=== PATIENT | female | born 1980 | race Caucasian/White ===

== ENCOUNTER 2019-12-18 00:25 | Emergency (ER) | payer BC ==
[2019-12-18 00:30] VITALS: BP 108/73; PULSE 75; TEMP 98.2; BMI 18.4
--- NOTE | 2019-12-18 01:41 | PDOC ---
History of Present Illness - General Chief Complaint: Injury Stated Complaint: RIGHT ANKLE PAIN, FALL DOWN STAIRS Time Seen by Provider: 12/18/19 00:27 - History of Present Illness Initial Comments: This 39-year-old woman with a history of right-sided breast cancer, currently undergoing chemotherapy prior to surgery, presents with right ankle injury. Few hours prior to presentation, the patient missed a step while descending stairs and turned her right ankle. Other than a scrape on her right forearm, no other injury sustained. Right ankle is swollen, especially lateral aspect and she has pain on weightbearing. No previous history of right lower extremity injury. Patient currently takes only acetaminophen as needed for pain No known allergies Non-smoker; no daily alcohol or recreational drug use Past History - Medical History Allergies/Adverse Reactions: Allergies Allergy/AdvReac Type Severity Reaction Status Date / Time No Known Allergies Allergy Unverified 02/02/13 16:58 Home Medications: Ambulatory Orders Norethindrone-E.estradiol-Iron [Lo Loestrin Fe 1-10 Tablet] 1 each PO ASDIR tablet 02/02/13 - Psycho-Social/Smoking History Smoking History: Never smoked Have you smoked in the past 12 months: No Information on smoking cessation initiated: No - Substance Abuse Hx (Audit-C & DAST Scrn) How often the patient has a drink containing alcohol: Never Score: In Men: 4 or > Positive; In Women: 3 or > Positive: 0 Screen Result (Pos requires Nsg. Audit-10AR): Negative In the last yr the pt used illegal drug/Rx for NonMed reason: No Score: Yes response is considered Positive: 0 Screen Result (Positive result requires Nsg. DAST-10): Negative Review of Systems - Review of Systems Comments:: 12 point review of systems is negative except for what is noted in the history of present illness *Physical Exam - Vital Signs Last Vital Signs Temp Pulse Resp BP Pulse Ox 98.2 F 75 20 108/73 99 12/18/19 00:12/18/19 00:12/18/19 00:12/18/19 00:12/18/19 00:27 - Physical Exam GENERAL: Adult female, alert and oriented x3, no acute distress HEAD: Normal with no signs of trauma. EYES: PERRLA, EOMI, sclera anicteric, conjunctiva clear. EXTREMITIES: Right lower extremity-moderate edema/moderate tenderness/faint ecchymosis/no deformity lateral malleolus of ankle No ligamentous instability noted No foot edema/tenderness/deformity; distal neurovascular functioning intact Remainder the extremity exam is normal NEUROLOGICAL: Cranial nerves II through XII grossly intact. Normal speech. No focal neurological deficits. SKIN: Warm, Dry, normal turgor, no rashes or lesions noted. ED Treatment Course - RADIOLOGY Radiology Studies Ordered: Category Date Time Status ANKLE & FOOT-RIGHT* [RAD] Stat Radiology 12/18/19 00:30 Taken ED Progress Note - Progress Note Progress Note: As noted above, this 39-year-old woman presents with a history of right ankle injury this evening: She turned her ankle (inverted) when she missed a step while climbing down stairs at her home. Exam as noted above. Right ankle/foot x-rays performed. Preliminary interpretation by augustft tissue swelling, especially lateral aspect of the ankle; no evidence of fracture or dislocation. Clinical presentation most consistent with right ankle sprain. Results discussed with the patient. Removable ankle stirrup splint applied to the right lower extremity. Crutches were fitted for the patient and crutch walking instruction given. Patient does not have an orthopedist; referral information for the orthopedic group on-call (Jae/Antonino) provided. Patient received Tylenol 650 mg now for analgesia. Patient will elevate and ice the right ankle for the next 1 to 2 days with crutches for ambulation and use removable splint for 7 to 10 days. If she has persistent pain or swelling, she should follow-up with orthopedic group Discharge - Discharge Information Problems reviewed: Yes Clinical Impression/Diagnosis: Right ankle sprain Qualifiers: Encounter type: initial encounter Involved ligament of ankle: calcaneofibular ligament Qualified Code(s): S93.411A - Sprain of calcaneofibular ligament of right ankle, initial encounter Condition: Stable Disposition: HOME - Follow up/Referral Referrals: David Rowe MD [Staff Physician] - - Patient Discharge Instructions Patient Printed Discharge Instructions: Ankle Sprain Additional Instructions: Ice/elevation to right ankle area as much as possible over the next 2 days Ankle stirrup splint during the day for the next 7 to 10 days Use crutches for ambulation for the next 2 to 3 days Tylenol as needed for pain Follow-up with orthopedics (Drs. Rowe/Antoinno) if you have persistent pain/swelling for more than 5 days - Post Discharge Activity
[2019-12-18] MEDS ORDERED: ACETAMINOPHEN 325 MG TABLET (FP) PO ONE (01:46)
[2019-12-18] MEDS ORDERED: ACETAMINOPHEN 325 MG TABLET (FP) ONE (01:46)
== END 2019-12-18 01:55 | disposition home or self-care (01) ==
LOC: FER 00:25
DX: S93.411A Sprain of calcaneofibular ligament of right ankle, initial encounter (principal)
CPT/HCPCS: 73610-TC-RT-FY; 73630-TC-RT-FY; 99283-25

== ENCOUNTER 2020-03-27 10:00 | Inpatient (IN) | payer BC ==
[2020-03-25 11:09] VITALS: BMI 19.8
--- NOTE | 2020-03-26 09:48 | HP ---
Admitting History and Physical - Primary Care Physician PCP: Jamie White - Admission Chief Complaint: Bilateral breast cancer History of Present Illness: 40 year old nulliparous premenapausal female of [place] and [place] descent. who noted swelling in upper ineer aspect of right breast and underwent mammogram and US 08/2019 which showed extensive calcifications upper inner aspect right breast and small central area. Diagnostic mammogram showed 6.6 cm calcification extension. US breast showed three separate areas right 1:00,2:00 and 3:00 spanning 4.7 cm as well as a suspicious node right axilla. Right US core bxs showed right 1:00 IDC coil clip, right 2:00 IDC and saviscout was placed in that area. Right axillary lymph node showed metastatic dz and saviscout was placed there . ER +WI+ HER2 equivocal/ neg by fish. Breast MRI showed 09/2019 farly extensive right upper inner breast cancer 4.2x2.1x2.8cm with enhancement towards right nipple. 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 Ambry panel showed VUS BLM. Oncotype score was a 27. She underwent neoadjuvant chemotherapy with significant reduction in enhancement in right br east suspicious residual enhancement 9mm node and thick cortex. Exam showed complete clinical response right breast to neoadjuvant chmeotherapy. On recent mammogram she still has calcifications in right upper inner breast and they are diffuse. There is some sparing under the nipple . History Source: Patient Limitations to Obtaining History: No Limitations - Past Medical History ...LMP Comment: 10/2019 ...: No Psych: Yes: Depression - Advance Directives Advance Directives: Yes: Health Care Proxy - Smoking History Smoking history: Never smoked Have you smoked in the past 12 months: No Home Medications - Allergies Allergies/Adverse Reactions: Allergies Allergy/AdvReac Type Severity Reaction Status Date / Time seasonal Allergy Uncoded 03/25/20 10:54 - Home Medications Home Medications: Ambulatory Orders Ascorbate Calcium [Vitamin C] 1,000 mg PO DAILY 03/25/20 Cholecalciferol (Vitamin D3) [Vitamin D3] 2,000 unit PO DAILY 03/25/20 Cyanocobalamin [Vitamin B12 -] 1,000 mcg PO DAILY 03/25/20 Sertraline HCl [Zoloft -] 75 mg PO DAILY 03/25/20 Family Medical History Family History: Denies Physical Examination Constitutional: Yes: Well Nourished Breast(s): Yes: Other (A cup sized breasts On palpation her previous thickend in upper inner aspect right breast dissapated no suspicious masses or adenopathy bilaterally S/P neoadjuvant chemotherapy) Problem List - Problems (1) Bilateral breast cancer Problems reviewed: Yes Code(s): C50.911 - MALIGNANT NEOPLASM OF UNSP SITE OF RIGHT FEMALE BREAST; C50.912 - MALIGNANT NEOPLASM OF UNSPECIFIED SITE OF LEFT FEMALE BREAST Qualifiers: Breast location: upper inner quadrant of breast Estrogen receptor status: positive Patient sex: female Qualified Code(s): C50.211 - Malignant neoplasm of upper-inner quadrant of right female breast; C50.212 - Malignant neoplasm of upper-inner quadrant of left female breast; Z17.0 - Estrogen receptor positive status [ER+] Assessment/Plan Bilateral total mastectomies ,right axillary lymph node biopsy with saviscout localization, Bilateral sentenel node biopsies, bilateral lymphos cintograms,possible axillary node dissections, reconstruction, life port removal
--- OUTSIDE RECORDS SUMMARY | 2020-03-27 11:14 | XMS ---
:1980 Author Organization [facility] Support Name Relationship Address Phone CHASTITY AVILA [address] [phone] [place] [address] [employer] Unavailable [address] [place] [address] CHASTITY TRUONG MOTHER [id number] [phone] [place] [address] [address]AST[address] [place] [address] Re-disclosure Warning The records that you are about to access may contain information from federally- assisted alcohol or drug abuse programs. If such information is present, then the following federally mandated warning applies: This information has been disclosed to you from records protected by federal confidentiality rules (42 CFR part 2). The federal rules prohibit you from making any further disclosure of this information unless further disclosure is expressly permitted by the written consent of the person to whom it pertains or as otherwise permitted by 42 CFR part 2. A general authorization for the release of medical or other information is NOT sufficient for this purpose. The Federal rules restrict any use of the information to criminally investigate or prosecute any alcohol or drug abuse patient.The records that you are about to access may contain highly sensitive health information, the redisclosure of which is protected by Article 27-F of the [place] State Public Health law. If you continue you may haveaccess to information: Regarding HIV / AIDS; Provided by facilities licensed or operated by the [facility] Office of Mental Health; or Provided by the [facility] Office for People With Developmental Disabilities. If such information is present, then the following [facility] mandated warning applies: This information has been disclosed to you from confidential records which are protected by state law. State law prohibits you from making any further disclosure of this information without the specific written consent of the person to whom it pertains, or as otherwise permitted by law. Any unauthorized further disclosure in violation of state law may result in a fine or snf sentence or both. A general authorization for the release of medical or other information is NOT sufficient authorization for further disclosure. Insurance Providers Payer name Policy type / Policy ID Covered Covered green party's Policy Plan Coverage type green party ID relationship to Denise Information denise [facility] [id number] [facility] [id number] Results ID Date Data Source [id number] 03/24/2020 10:20:00 AM EDT [facility] Name Value Range Interpretation Description Data Sup porting Code Source(s) Document(s ) SARS [facility] coronavirus 2 RNA This lab was ordered by LADAN COHEN and reported by [facility]. ID Date Data Source [id number] 03/01/2020 11:31:00 AM EDT [facility] Name Value Range Interpretation Description Data Sup porting Code Source(s) Document(s ) 2018 Novel [facility] Coronavirus RNA Interpretation Unspecified Specimen Qualitative KISHA Probe Detection This lab was ordered by [place] [id number] and reported by [facility]. ID Date Data Source [id number] 01/21/2020 10:50:00 AM EDT [facility] Name Value Range Interpretation Description Data Sup porting Code Source(s) Document(s ) 2018 Novel [facility] Coronavirus RNA Interpretation Unspecified Specimen Qualitative KISHA Probe Detection This lab was ordered by [place] [id number] and reported by [facility]. ID Date Data Source [id number] 12/31/2019 11:48:00 AM EDT [facility] Name Value Range Interpretation Description Data Sup porting Code Source(s) Document(s ) 2018 Novel [facility] Coronavirus RNA Interpretation Unspecified Specimen Qualitative KISHA Probe Detection This lab was ordered by [place] [id number] and reported by [facility]. ID Date Data Source [id number] 12/10/2019 11:30:00 AM EDT [facility] Name Value Range Interpretation Description Data Sup porting Code Source(s) Document(s ) 2018 Novel [facility] Coronavirus RNA Interpretation Unspecified Specimen Qualitative KISHA Probe Detection This lab was ordered by [id number] and reported by [facility]. ID Date Data Source [id number] 10/11/2019 08:40:00 AM EDT [facility] Name Value Range Interpretation Code Description Data Azalea rce(s) Supporting Document(s ) SARS-CoV-2 [facility] N gene Resp Ql KISHA+probe This lab was ordered by [facility] and reported by [facility]. Procedure
[2020-03-27] MEDS ORDERED: ceFAZolin SODIUM 1 GM VIAL ONE ×2 (11:55→13:12)
[2020-03-27] MEDS ORDERED: GENTAMICIN SO4 80 MG/2 ML VIAL ONE (11:55)
[2020-03-27] MEDS ORDERED: BUPIVACAINE HCL/PF 0.25% (2.5MG/ML) 10 ML VIAL ONE (11:56)
[2020-03-27] MEDS ORDERED: SODIUM CHLORIDE 0.9% P/F 10 ML VIAL IJ ONE ×2 (11:56→13:12)
[2020-03-27] MEDS ORDERED: ISOSULFAN BLUE 10 MG/ML VIAL SQ ONE (11:58)
[2020-03-27] MEDS ORDERED: BUPIVACAINE LIPOSOME/PF (EXPAREL) 266 MG/20 ML VIAL ONE (12:00)
[2020-03-27] MEDS ORDERED: PROPOFOL 20 ML ONE ×2 (12:43→16:42)
[2020-03-27] MEDS ORDERED: ROCURONIUM BROMIDE 50 MG/5 ML SYRINGE ONE ×2 (12:44→14:37)
[2020-03-27] MEDS ORDERED: MIDAZOLAM HCL 2 MG/2 ML SINGLE DOSE VIAL ONE (12:44)
[2020-03-27] MEDS ORDERED: LIDOCAINE HCL/PF 2% SDV 5ML VIAL ONE (12:44)
[2020-03-27] MEDS ORDERED: SUCCINYLCHOLINE CHLORIDE 200 MG/10 ML SYRINGE ONE (13:04)
[2020-03-27] MEDS ORDERED: ONDANSETRON 4 MG/2 ML VIAL ONE (13:20)
[2020-03-27] MEDS ORDERED: DEXAMETHASONE SOD PHOSPHATE 4 MG/1 ML VIAL ONE (13:20)
[2020-03-27] MEDS ORDERED: HYDROmorphone HCL/PF 1 MG/ML VIAL ONE ×2 (14:08→14:52)
[2020-03-27] MEDS ORDERED: EPHEDRINE SULFATE/0.9% NACL/PF 50 MG/10 ML SYRINGE NR ONE (14:16)
[2020-03-27] MEDS ORDERED: GLYCOPYRROLATE 0.2 MG/1 ML VIAL ONE (16:35)
[2020-03-27] MEDS ORDERED: NEOSTIGMINE METHYLSULFATE 0.5 MG/ML - 10 ML MDV ONE (16:35)
[2020-03-27] MEDS ORDERED: oxyCODONE HCL 5 MG TABLET PO PRN ×3 (16:43→17:06)
[2020-03-27] MEDS ORDERED: ONDANSETRON 4 MG/2 ML VIAL IVPUSH PRN ×2 (16:43→17:06)
[2020-03-27] MEDS ORDERED: ZOLPIDEM TARTRATE 5 MG TABLET PO PRN (16:43)
[2020-03-27] MEDS ORDERED: ACETAMINOPHEN 325 MG TABLET (FP) PO PRN (16:43)
[2020-03-27] MEDS ORDERED: DEXTROSE 5%-0.45% SALINE 1,000 ML IV SCH (16:45)
[2020-03-27] MEDS ORDERED: PROMETHAZINE HCL 25 MG/1 ML VIAL IVPUSH PRN (17:06)
[2020-03-27] MEDS ORDERED: ONDANSETRON 4 MG/2 ML VIAL IVPUSH ONE (18:00)
[2020-03-27] MEDS: CEFAZOLIN 1 GM/D5W 1 GM/50 ML BAG IVPB SCH (19:05)
--- NOTE | 2020-03-27 20:05 | OP ---
DATE OF OPERATION: 03/27/2020 PREOPERATIVE DIAGNOSIS: Bilateral breast cancer with node-positive disease on the right status post neoadjuvant chemotherapy. POSTOPERATIVE DIAGNOSIS: Bilateral breast cancer with node-positive disease on the right status post neoadjuvant chemotherapy. PROCEDURE: Bilateral attempted total nipple-sparing mastectomies through inframammary approach at bilateral sentinel lymph node biopsies, then a later right axillary lymph node dissection and excision of the right nipple-areolar complex with bilateral subpectoral direct to implant reconstruction with AlloDerm and removal of left chest wall urmila-cath. ANESTHESIA: General endotracheal anesthesia. PRIMARY SURGEON: Eris White MD. FLEXOGRAPHIC PRESS PLATE SETTER: CECILIA Jesus. Primary surgeon for the bilateral direct implant reconstruction with Cortiva is Dr. Eris Chaparro. COMPLICATIONS: There were no complications. DESCRIPTION OF PROCEDURE: Briefly, the patient is a 40-year-old nulliparous premenopausal white female with [place] descent. She has no family history of breast or ovarian cancer, but mother had thyroid cancer at age 65. The patient underwent mammography in August 2019 after noticing some swelling in the upper aspect of the right breast and was found to have extensive calcifications in the right breast upper inner quadrant and some calcifications centered in the left breast. Ultrasound showed 3 separate focuses of suspicion in the right breast, 1 o'clock, 2 o'clock, and 12 o'clock regions, over an area of 4.7 cm, and she had a suspicious right axillary lymph node. She underwent ultrasound-guided core biopsies on the right breast in the 1 and 2 o'clock regions, both showing invasive ductal cancer in the axillary lymph nodes. Biopsies were also positive for cancer. She had a Joselin Stem Processing Machine Operator placed in the right axilla. Left breast biopsy and calcification also showed a couple foci microinvasive ductal cancers. Both cancers are ER/TX positive, HER2/sapna negative. Due to the COVID crisis, the patient was seen by medical oncology and underwent neoadjuvant chemotherapy. After neoadjuvant chemotherapy, MRI showed significant improvement, but there was still some residual enhancement in the right breast. She was seen in consultation, was advised in undergoing bilateral mastectomies, and given the fact that the tumor had shrunk down somewhat, we decided we could offer her nipple-sparing mastectomies. We planned sentinel lymph node biopsies as well as a localization of the Joselin Stem Processing Machine Operator in the right axilla at the time of surgery with possible need for axillary lymph node dissection. The patient also understood the possible need for nipple resection if any of the retroareolar biopsies were positive. The patient was seen by Dr. Chaparro and agreed to direct implant reconstruction. She understood the possible need for radiation over the right implants after surgery. The patient was brought in for the procedure on March 27, 2020. She first underwent lymphoscintigraphy at [facility] and was brought to the [place] holding area. In the holding area, site verification was made and informed consent was obtained. She was marked preoperatively by the plastic surgeon. She underwent COVID testing preoperatively which was negative. The patient was brought into the operating room and laid on the OR table in the supine position. Venodynes were placed on the lower extremities prior to induction. She received 2 g Ancef prior to incision. She underwent general endotracheal anesthesia. No blue dye was injected given the fact we were performing nipple-sparing mastectomies. Timeout was performed. The left axillary sentinel lymph node biopsy was first performed. An incision was made just below the hair-bearing area of the left axilla, and dissection was undertaken using the Neoprobe to direct the dissection. One sentinel lymph node was found in the level 1 region of the left axilla with a 10-second gamma count of 4218. This was sent down to pathology for frozen section and came back negative, so no further nodes were removed. There were no other hot nodes found, and the left axilla and background count after removal of this 1 node was 285. At this point, instruments were changed, and the right axillary lymph node was performed. We first performed the directed Joselin Stem Processing Machine Operator node excision. The Joselin Stem Processing Machine Operator was used to localize the node, and an incision was made just below the hair-bearing area of the right axilla. Dissection was undertaken, and the Joselin Stem Processing Machine Operator was easily found coursing to a hot node in the right axilla. The Joselin Stem Processing Machine Operator was removed from the node prior to sending it to pathology for frozen section, and it had a 10-second gamma count of 13,064. Two other hot nodes were found in the level 1, level 2 region of the right axilla with 10-second gamma counts of 27,595 and 5137. Background counts after removing these 3 nodes was 799. Frozen section came back on the 1st node as still having some residual cancer, so axillary lymph node dissection would be performed. The right nipple-sparing mastectomy was first performed through about a 9-cm incision in the inframammary fold of the right breast. The skin edges were everted, and the breast was retracted inferiorly using [place] clamps. The skin clamp was raised using the PEAK radiofrequency device superiorly to the level of the clavicle, medially to the level of the sternum, laterally to the level of the latissimus, and inferiorly below the level of the inframammary fold. The breast was taken down off the pectoralis major muscle from inferior medial to superior lateral and completely removed intact. It was oriented with a long lateral, short superior suture and was weighed to allow for appropriate cosmetic result. Specimen radiographs showed removal of the coil clip in question, however the Joselin Stem Processing Machine Operator was still in the superficial area and was easily found and localized, and a separate anterior margin was taken with the Joselin Stem Processing Machine Operator localizer in place and the suture marking the biopsy cavity side. A separate anterior margin was taken on the 12 o'clock region of the right breast with the suture marking the biopsy cavity side as well as an anterior margin in the upper outer quadrant of the right breast with a suture marking the biopsy cavity side. A retroareolar biopsy was taken underneath the right nipple-areolar complex and sent for frozen section; some DCIS was found in that, so the entire nipple-areolar complex was removed through an elliptical incision removing the entire nipple-areolar complex which was sent to pathology in formalin with a long lateral, short superior suture. It should be noted that a nonsentinel lymph node was also found in the right axilla, which was sent separately for permanent section in formalin. At this point, the axillary lymph node dissection was undertaken, and level 1, level 2 axillary lymph node dissection was undertaken, and the long thoracic and thoracodorsal nerves were identified and spared throughout their entire courses. The 2nd intercostal nerve was sacrificed during the incision, and the nodes were sent to pathology in formalin as left axillary lymph node dissection. Hemostasis was achieved, and the wound was copiously irrigated with warm sterile saline. At this point, the left mastectomy was performed using a nipple-sparing technique again through about a 9-cm inframammary incision. The skin edges were everted and the breast was retracted inferiorly using [place] clamps. The skin flap was raised using the PEAK radiofrequency device superiorly to the level of the clavicle, medially to the level of the sternum, laterally to the level of the latissimus, and inferiorly below the level of the inframammary fold. The breast was taken down off the pectoralis major muscle using electrocautery from inferior medial to superior lateral and completely removed intact. It was oriented with a long lateral, short superior suture and weighed to allow for appropriate cosmetic result. It was sent to radiology for specimen radiographs. Unfortunately, the clip was not seen on initial specimen radiograph. We went ahead and did a further anterior margin excision in the lower inner aspect on the skin flap, and on that excision the clip was easily found. That specimen was oriented with a suture marking the biopsy cavity side and sent as right breast anterior margin with the clip. The left chest wall urmila-cath was removed through the inframammary mastectomy incision intact and sent to pathology. Hemostasis was achieved and the wound was copiously irrigated with warm, sterile saline. At this point, we did use the SPY skin perfusion device which showed good perfusion, though there was some slight decreased perfusion in the flap where we had thinned out the skin on the lower inner aspect on the left side. This did seem to fill up later on delayed images. The bilateral direct to implant reconstruction in subpectoral location will now be dictated by Dr. Eris Chaparro. He became the primary surgeon at this point to perform that procedure, and AlloDerm was used and sutured into the inferolateral aspect of both pectoralis major muscles to allow for direct implant reconstruction. Two drains were placed around each implant, and on the right side 1 of the drains was placed into the right axillary lymph node dissection. These were sutured in place using 3-0 nylon suture and placed on AXEL self bulb suction. Again, all wounds will be closed separately by Plastic Surgery. The patient will be extubated at the end of the case and brought to the post anesthesia care unit and will be admitted postoperatively for pain and wound management. All sponge and needle counts were correct at this point in the case, and estimated blood loss was about 125 mL. She was hemodynamically stable throughout. ERIS WHITE M.D. [id number] ST. [facility] HOSPITALMike
[2020-03-28] MEDS: CEFAZOLIN 1 GM/D5W 1 GM/50 ML BAG IVPB SCH ×3 (02:23→15:03)
[2020-03-28 08:13] LABS: HEMATOCRIT 29.1 % (32.4-45.2); HEMOGLOBIN 9.7 GM/dl (10.7-15.3); MCH 30.6 pg (25.7-33.7); MCHC 33.2 g/dl (32.0-36.0); MEAN CELL VOLUME 92.1 fl (80-96); MEAN PLT VOLUME 8.2 fl (7.5-11.1); PLATELET COUNT 209 K/MM3 (134-434); RBC 3.16 M/mm3 (3.60-5.2); RDW 12.3 % (11.6-15.6); WHITE BLOOD COUNT 9.9 K/mm3 (4.0-10.8)
--- NOTE | 2020-03-28 09:29 | PN ---
Progress Note (short form) - Note Progress Note: Plastic Surgery 40yo F s/p bilateral mastectomy and reconstruction, POD 1. Pt appears to be doing well, pain is controlled. Pt denies fever, chills, n/v, sob. Vital Signs Temp 98.2 F 03/28/20 06:00 Pulse 91 H 03/28/20 06:00 Resp 18 03/28/20 06:00 BP 105/64 03/28/20 06:00 Pulse Ox 99 03/28/20 06:00 Intake & Output 03/27/20 03/27/20 03/28/20 11:59 23:59 11:59 Intake Total 2250 Output Total 403 68 Balance 1847 -68 Weight 134 lb Intake: IV 1900 Oral 350 Output: Drainage 278 68 #L1 80 10 #L2 20 40 #R3 55 3 #R4 50 15 Urine 0 Estimated Blood Loss 125 Other: Voiding Method Toilet Toilet # Unmeasured Voids Void 1 Height 5 ft 9 in Body Mass Index (BMI) 19.8 Weight Measurement Method Standing Scale CBC, BMP 03/28/20 07:19 PE: Gen: A&O X3 Resp: breathing comfortably Breast: pink, warm, incisions clean with no erythema or discharge. Drains in place with serosanguinous drainage. Ext: no edema Problem List - Problems (1) Bilateral breast cancer Assessment/Plan: Plan -pt appears to be doing well, cleared from plastic surgery standpoint -follow drain output -pain control -regular diet Pt should follow up with Dr. Chaparro in the office as schedule Problems reviewed: Yes Code(s): C50.911 - MALIGNANT NEOPLASM OF UNSP SITE OF RIGHT FEMALE BREAST; C50.912 - MALIGNANT NEOPLASM OF UNSPECIFIED SITE OF LEFT FEMALE BREAST Qualifiers: Breast location: upper inner quadrant of breast Estrogen receptor status: positive Patient sex: female Qualified Code(s): C50.211 - Malignant neoplasm of upper-inner quadrant of right female breast; C50.212 - Malignant neoplasm of upper-inner quadrant of left female breast; Z17.0 - Estrogen receptor positive status [ER+]
[2020-03-28] MEDS ORDERED: HEPARIN NA (PORCINE) 5,000 UNITS/ML 1ML VIAL SQ SCH (10:00)
--- NOTE | 2020-03-28 10:36 | PN ---
Progress Note, Physician Chief Complaint: Bilateral breast cancer S/P left total mastectomy, nipple sparing and non nipple sparing right modified radical mastectomy POD#1 History of Present Illness: patient is eating , encouraged OOB today , oxycodone prn, no nausea or chills ,no fever - Current Medication List Current Medications: Active Medications Acetaminophen (Tylenol -) 650 mg PO Q4H PRN PRN Reason: FEVER Last Admin: 03/28/20 03:44 Dose: 650 mg Documented by: Heparin Sodium (Porcine) (Heparin -) 5,000 unit SQ BID ESTRELLA Dextrose/Sodium Chloride (D5-1/2ns -) 1,000 mls @ 100 mls/hr IV ASDIR ESTRELLA Last Admin: 03/27/20 20:51 Dose: 100 mls/hr Documented by: Cefazolin Sodium (Ancef 1 Gm Premixed Ivpb -) 1 gm in 50 mls @ 100 mls/hr IVPB Q6H ESTRELLA Last Admin: 03/28/20 06:03 Dose: 100 mls/hr Documented by: Ondansetron HCl (Zofran Injection) 4 mg IVPUSH Q6H PRN PRN Reason: NAUSEA AND/OR VOMITING Last Admin: 03/27/20 20:52 Dose: 4 mg Documented by: Oxycodone HCl (Roxicodone -) 10 mg PO Q4H PRN PRN Reason: PAIN LEVEL 6-10 Oxycodone HCl (Roxicodone -) 5 mg PO Q4H PRN PRN Reason: PAIN LEVEL 1-5 Zolpidem Tartrate (Ambien -) 5 mg PO HS PRN PRN Reason: Insomnia - Objective Vital Signs: Vital Signs Temperature 98.2 F 03/28/20 06:00 Pulse Rate 91 H 03/28/20 06:00 Respiratory Rate 18 03/28/20 06:00 Blood Pressure 105/64 03/28/20 06:00 O2 Sat by Pulse Oximetry (%) 99 03/28/20 06:00 Constitutional: Yes: No Distress Breast(s): Yes: Other (Bilateral flaps warm,pink, viable, mild echymosis bilateral drains functioning well serosanguinous output, no infection or expanding hematoma) Labs: CBC, BMP 03/28/20 07:19 Problem List - Problems (1) Bilateral breast cancer Problems reviewed: Yes Code(s): C50.911 - MALIGNANT NEOPLASM OF UNSP SITE OF RIGHT FEMALE BREAST; C50.912 - MALIGNANT NEOPLASM OF UNSPECIFIED SITE OF LEFT FEMALE BREAST Qualifiers: Breast location: upper inner quadrant of breast Estrogen receptor status: positive Patient sex: female Qualified Code(s): C50.211 - Malignant neoplasm of upper-inner quadrant of right female breast; C50.212 - Malignant neoplasm of upper-inner quadrant of left female breast; Z17.0 - Estrogen receptor positive status [ER+] Assessment/Plan AXEL drain training SCD IV antibiotics, spirometry oxycodone prn OOB today consider diischarge home later today
[2020-03-28 14:18] VITALS: BP 105/67; PULSE 81; TEMP 99.4
--- NOTE | 2020-03-28 14:34 | PN ---
Progress Note (short form) - Note Progress Note: S: Pt. comfortable in bed. +PONV last pm, now resolved O: VAS 4/10 at rest A/P: POD#1 s/p left total mastectomy, nipple sparing and non nipple sparing right modified radical mastectomy 1. Continue po pain meds as ordered 2. Zofran prn n/v
--- NOTE | 2020-03-28 17:13 | OP ---
DATE OF OPERATION: 03/27/2020 PREOPERATIVE DIAGNOSES: 1. Bilateral acquired chest wall deformity status post bilateral mastectomy (611.89). 2. Personal history of genetic carcinoma. POSTOPERATIVE DIAGNOSES: 1. Bilateral acquired chest wall deformity status post bilateral mastectomy (611.89). 2. Personal history of genetic carcinoma. PROCEDURE: 1. Right immediate breast reconstruction utilizing immediate insertion of silicone breast implant and AlloDerm reconstruction. 2. Left immediate breast reconstruction utilizing immediate insertion of silicone breast implant and AlloDerm reconstruction. 3. Intravenous injection of indocyanine green dye and intraoperative diagnostic evaluation of non-coronary intraoperative fluorescein vascular angiography x 2. SURGEON: Eris Chaparro MD MEDICAL SOCIAL CONSULTANT: DIANE Camarillo ANESTHESIA: GENERAL ANESTHESIOLOGIST: OPERATIVE PROCEDURE IN DETAIL: The patient was taken to the operating room. After induction of general anesthesia in the supine position, both arms were extended and padded. Venodyne boots were placed. The entire chest wall was painted with ChloraPrep solution over its entire extent, and sterile drapes were placed in the usual fashion. The markings, which had been made in the standing position preoperatively, were re outlined with the patient's knowledge. Time-out procedure was performed. Attention was turned by Dr. White to the mastectomies. Bilateral inframammary incisions were made and Dr. White performed mastectomies. This will be dictated under separate cover. Upon completion of the mastectomies, the wounds were copiously irrigated and attention was turned to the right breast. A subpectoral dissection was begun on the right breast, superiorly from the second rib, medially to the sternal fibers, and down to the inframammary fold, elevating the pectoralis major muscle from its insertion. At this point, a sheet of acellular dermal matrix AlloDerm with medium contour perforated material was brought into the field and sutured superiorly along the pectoralis major muscle after rehydration. This was carried along the lateral mammary fold and down the side of the breast reconstruction. At this point, a Sientra smooth round high-profile style 107, 440-mL implant was chosen. The left breast tissue removed was 191 gm, and the right breast approximately 190 gm. This implant was placed and then sutured with 3-0 Vicryl suture continued along the inframammary fold, completely covering the implant itself. The exact same procedure was carried out symmetrically on the opposite breast, also placing a Sientra smooth round high-profile style 107, 440-mL implant in the same subpectoral pocket. Good symmetry was seen in the sitting position. After the implants were in place, the patient was injected with 10 mL of indocyanine green dye and the Spy imaging system was brought into the field. The skin flowed to the right and left breasts and the nipple areolar complex, and the entire skin flaps were evaluated and seen to be viable with good blood flow. Two Markus drains were brought out through separate stab wounds laterally. The Smart Infuser pump catheter was inserted medially and into the subpectoral position. Both wounds were closed symmetrically using 3-0 PDS suture on the deep tissue, 3-0 in a deep dermal fashion, and 4-0 in a subcuticular fashion. Both wounds were dressed sterilely with Mastisol and Steri-Strips with a surgical bra and a compression strap. The patient tolerated the procedure well. She was awakened, extubated and transferred to the recovery room in satisfactory condition. The administrative sales assistant was present during the entire portion of the operation and closure. ERIS CHAPARRO M.D. JOSÉ [id number]
--- NOTE | 2020-04-01 16:44 | SURG ---
Surgery Park Warden Note Park Warden: Gabby Lemus PA-C (Suzy) Date of Service: 03/27/20 Diagnosis: 1. bilateral acquired chest wall deformity status post bilateral mastectomy 2. personal history of genetic carcinoma Procedure: 1. right immediate breast reconstruction utilizing immediate insertion of silicone breast implant and alloderm reconstruction 2. left immediate breast reconstruction utilizing immediate insertion of silicone breast implant and alloderm reconstruction 3. intravenous injection of indocyanine green dye and intraoperative diagnostic evaluation of non-coronary intraoperative fluorescein vascular angiography x2 I was present for the entirety of the operative procedure. For further detail, please refer to operative report. Visit type - Case Type Case Type: Scheduled - Emergency Emergency Visit: No - New patient This patient is new to me today: Yes Date on this admission: 04/02/20 - Critical Care Critical Care patient: No
--- NOTE | 2020-04-02 13:13 | PATH ---
Surgical Pathology Report Patient Name: FATMATA ROUSSEAU Med. Rec. #: [id number] /Age/Gender: 1980 (Age: 40) / F Account: [id number] Location: [facility] MED-SURG Taken: 03/27/2020 Received: 03/27/2020 Reported: 04/14/2020 Physicians: Jamie White M.D. 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 Left sentinel node #1, frozen section: One negative lymph node. B. Right sentinel node #1, frozen section: Metastatic carcinoma involving lymph node. C. Right sentinel node #2, frozen section: One negative lymph node. D. Right sentinel node #3, frozen section: One negative lymph node. E. Left retroareolar biopsy: Negative for malignancy. F. Right retroareolar biopsy: Ductal carcinoma in situ (DCIS), intermediate nuclear grade with associated calcifications (best seen in levels 4 & 5). Johnny Sagastume 03/27/20 Final Diagnosis A. LEFT BREAST SENTINEL NODE#1, EXCISION (FS): ONE LYMPH NODE, NEGATIVE FOR METASTATIC CARCINOMA IN H&E STAINED SLIDES AND COMFIRMED BY CYTOKERATIN AE1/3 IMMUNOSTAIN (0/1). B. RIGHT BREAST SENTINEL NODE #1 EXCISION (FS): ONE LYMPH NODE, POSITIVE FOR METASTATIC CARCINOMA (1/1). TUMOR DEPOSIT MEASURES 4 MM IN GREATEST DIMENSION. NO EXTRANODAL EXTENSION IDENTIFIED. C. RIGHT BREAST SENTINEL NODE #2, EXCISION (FS): ONE LYMPH NODE, NEGATIVE FOR METASTATIC CARCINOMA IN H&E STAINED SLIDES AND COMFIRMED BY CYTOKERATIN AE1/3 IMMUNOSTAIN (0/1). D. RIGHT BREAST SENTINEL NODE #3, EXCISION (FS): ONE LYMPH NODE, NEGATIVE FOR METASTATIC CARCINOMA IN H&E STAINED SLIDES AND COMFIRMED BY CYTOKERATIN AE1/3 IMMUNOSTAIN (0/1). E. LEFT BREAST RETROAREOLAR BIOPSY (FS): BENIGN BREAST TISSUE. F. RIGHT BREAST RETROAREOLAR BIOPSY (FS): DUCTAL CARCINOMA IN SITU (DCIS), INTERMEDIATE NUCLEAR GRADE, WITH ASSOCIATED CALCIFICATIONS. Comment: DCIS is best seen in the frozen section slides. G. LEFT BREAST MASTECTOMY: BREAST TISSUE WITH DENSE HYALINIZING FIBROTIC STROMA, CONSISTENT WITH PRESURGICAL TREATMENT EFFECT. NO RESIDUAL CARCINOMA IDENTIFIED. PATHOLOGIC STAGE (ypTNM): ypT0, ypN0 SEE INVASIVE CARCINOMA CASE SUMMARY BELOW. Comment: Immunohistochemical stain E- Cadherin (block G1) performed and interpreted at [facility] shows no atypical lobular cells proliferation. Positive and negative controls (internal if applicable) show appropriate results. H. RIGHT BREAST MASTECTOMY: INVASIVE DUCTAL CARCINOMA, WELL DIFFERENTIATED (TUBULE SCORE 1/3, NUCLEAR GRADE: 2/3, MITOTIC SCORE: 1/3, TOTAL SCORE 4/9, CORTEZ GRADE 1), MEASURING 2.5CM IN GREATEST DIMENSION, MICROSCOPICALLY, IN A DENSE HYALINIZING FIBROTIC BACKGROUND, CONSISTENT WITH PARTIALLY TREATED TUMOR BED TISSUE; INVASIVE CARCINOMA COMPRISES APPROXIMATELY 40% OF FIBROTIC TUMOR BED TISSUE. DUCTAL CARCINOMA IN SITU (DCIS) PRESENT, LOW TO INTERMEDIATE NUCLEAR GRADE, CRIBRIFORM, MICROPAPILLARY AND PAPILLARY PATTERNS, WITH ASSOCIATED MICROCALCIFICATIONS. ANTERIOR MARGIN IS EXTENSIVELY INVOLVED BY INVASIVE DUCTAL CARCINOMA. SEE SPECIMEN I TO K FOR FINAL MARGINS. REACTIVE CHANGES AT PRIOR BIOPSY SITE IDENTIFIED. LYMPHOVASCULAR INVASION NOT IDENTIFIED. PATHOLOGIC STAGE (ypTNM): ypT2, ypN1a SEE INVASIVE CARCINOMA CASE SUMMARY BELOW. Comment: Immunohistochemical stains (block H4) performed and interpreted at [facility] show the following results: smooth muscle myosin heavy chain and p63 show loss of the myoepithelial cell layer in the areas of invasive carcinoma. Cytokeratin stain AE1/3 (block H8) highlights the tumor cells at the inked anterior margin. Positive and negative controls (internal if applicable) show appropriate results. I. RIGHT BREAST ANTERIOR MARGIN 12:00 O'CLOCK, EXCISION: INVASIVE DUCTAL CARCINOMA, MEASURING 0.4 CM IN GREATEST DIMENSION. DUCTAL CARCINOMA IN SITU (DCIS) PRESENT, LOW NUCLEAR GRADE. NEW MARGIN IS POSITIVE FOR INVASIVE CARCINOMA. DCIS IS AT <1MM FROM THE NEW MARGIN. Comment: Cytokeratin stain AE1/3 (block I4) highlights the tumor cells at the inked new margin. Positive and negative controls (internal if applicable) show appropriate results. J. 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 NEW MARGIN IS NEGATIVE FOR INVASIVE CARCINOMA. INVASIVE CARCINOMA IS AT 1.8 MM FROM THE NEW MARGIN. DCIS IS AT 5MM FROM THE NEW MARGIN. K. RIGHT BREAST ANTERIOR MARGIN UPPER OUTER QUADRANT, EXCISION: BENIGN BREAST TISSUE. L. LEFT BREAST ANTERIOR MARGIN 12:00 O'CLOCK: BENIGN BREAST TISSUE. M. RIGHT AXILLARY NODE DISECTION (1548, 1550): EIGHT LYMPH NODES, NEGATIVE FOR METASTATIC CARCINOMA (0/8). N. LEFT BREAST ANTERIOR MARGIN WITH CLIP, EXCISION: BREAST TISSUE WITH DENSE STROMAL FIBROSIS, CHRONIC INFLAMMATION, HEMOSIDERIN LADEN MACROPHAGES INFILTRATE, AND ASSOCIATED MICROCALCIFICATIONS, CONSISTENT WITH PRIOR BIOPSY SITE/PARTIALLY TREATED TUMOR BED. NEGATIVE FOR CARCINOMA. O. RIGHT NIPPLE, RESECTION: NIPPLE WITH ATYPICAL DUCTAL HYPERPLASIA (ADH). P. RIGHT AXILLARY NON-SENTINEL LYMPH NODE, EXCISION: ONE LYMPH NODE, NEGATIVE FOR METASTATIC CARCINOMA IN H&E STAINED SLIDES AND COMFIRMED BY CYTOKERATIN AE1/3 IMMUNOSTAIN (0/1). Q. RADHA CATH: CONSISTENT WITH A RADHA CATH. GROSS ONLY. Comments Breast Invasive Carcinoma: Surgical Pathology Case Summary for Right Breast (Specimen H): (Based on AJCC TNM 8 th edition) Procedure _x_ Total mastectomy (including nipple-sparing and skin-sparing mastectomy) Specimen Laterality _x_ Right Tumor Size _x_ Greatest dimension of largest invasive focus >1 mm (millimeters): 25 mm Histologic Type _x_ Invasive carcinoma of no special type, NOS (ductal) Histologic Grade ([place] Histologic Score) Glandular (Acinar)/Tubular Differentiation _x__ Score 1 (>75% of tumor area forming glandular/tubular structures) Nuclear Pleomorphism _x_ Score 2 Mitotic Rate _x_ Score 1 Overall Grade _x_ Grade 1 (scores of 3, 4, or 5) Tumor Focality _x_ Single focus of invasive carcinoma Ductal Carcinoma In Situ (DCIS) _x_ DCIS is present in specimen _x_ Positive for extensive intraductal component (EIC) Tumor Extension Skin _x_ Skin is present and uninvolved Nipple _x_ DCIS does not involve the nipple epidermis Skeletal Muscle _x_ No skeletal muscle is present. Margins Invasive Carcinoma Margins Positive for invasive carcinoma: _x_ right breast anterior margin 12:00 o'clock DCIS Margins _x_ Uninvolved by DCIS Distance from closest margin (millimeters): < 1mm Specify closest margin(s): right breast anterior margin 12:00 o'clock Regional Lymph Nodes _x_ Involved by tumor cells Number of Lymph Nodes with Macrometastases (>2 mm): 1 Number of Lymph Nodes with Micrometastases (>0.2 mm to 2 mm and/or >200 cells): 0 Number of Lymph Nodes with Isolated Tumor Cells (=0.2 mm and =200 cells): 0 Size of Largest Metastatic Deposit (millimeters): 4mm Extranodal Extension: _x_ Not identified Treatment Effect in the Breast _x_ Probable or definite response to presurgical therapy in the invasive carcinoma Treatment Effect in the Lymph Nodes _x_ No definite response to presurgical therapy in metastatic carcinoma Lymphovascular Invasion _x_ Not identified Pathologic Stage Classification (pTNM, AJCC 8th Edition) Primary Tumor (Invasive Carcinoma) (pT) _x_ ypT2: Tumor >20 mm but =50 mm in greatest dimension Category (pN) _x_ ypN1a: Metastases in 1 to 3 axillary lymph nodes, at least 1 metastasis larger than 2.0 mm Biomarker Studies Results of ER and AK studies performed on this specimen (block# H4) at [facility] are as follows: ER (clone [id number] mouse monoclonal antibody by [employer]): _x_ Positive: 98 % nuclear staining with strong intensity PgR (clone16 mouse monoclonal antibody by [employer]): _x_ Positive: ~15 % nuclear staining with strong and moderate intensity Results of Her2 (IHC) & Ki-67 studies performed on block "H4 " at [place], [place] ([id number]) are as follows: Her2 IHC (EP3 from [employer], formerly known as [id number], using [employer] Polymer Refine detection kit): Negative (0) Ki-67: <5% (Low proliferative index) Positive and negative controls (internal if applicable) show appropriate results. Formalin fixation and cold ischemic times are within current ASCO/CAP recommendations for ER, PgR and Her2 testing. Breast Invasive Carcinoma: Surgical Pathology Case Summary for Left Breast (specimen G) (Based on AJCC TNM 8 th edition) Procedure _x_ Total mastectomy (including nipple-sparing and skin-sparing mastectomy) Specimen Laterality _x_ Left Tumor Size _x_ No residual invasive carcinoma Histologic Type _x_ No residual invasive carcinoma Histologic Grade ([place] Histologic Score) _x_ No residual invasive carcinoma Ductal Carcinoma In Situ (DCIS) _x_ No DCIS in specimen Regional Lymph Nodes _x_ Uninvolved by tumor cells Number of Lymph Nodes Examined: 1 Number of Garrett Nodes Examined: 1 Treatment Effect in the Breast _x_ No residual invasive carcinoma is present in the breast after presurgical therapy Treatment Effect in the Lymph Nodes _x_ No lymph node metastases and no fibrous scarring or histiocytic aggregates in the nodes. Lymphovascular Invasion _x_ Not identified Pathologic Stage Classification (pTNM, AJCC 8th Edition) Primary Tumor (Invasive Carcinoma) (pT) _x_ ypT0: No evidence of primary tumor# Category (pN) _x_ ypN0: No regional lymph node metastasis identified or ITCs only Findings discussed with Dr. White on 04/02/2020. Electronically Signed Matt Crocker M.D. Amendments Amended: 04/14/2020 Previous Signout Date: 04/02/2020 Comment: Additional deeper sections on specimen O (right nipple) show focal atypical ductal cells proliferation. The diagnosis for this specimen only is changed from "no significant pathologic change" to "atypical ductal hyperplasia (ADH)". Gross Description A. Received fresh for frozen section evaluation, labeled "left sentinel node #1" is a 0.6 x 0.4 x 0.2 cm lymph node with attached fatty tissue. Frozen section is performed on the lymph node. The frozen section residue is entirely submitted in one cassette. B. Received fresh for frozen section evaluation, labeled "right sentinel node #1" is a 1.5 x 0.7 x 0.3 cm lymph node with attached fatty tissue. Frozen section is performed on the lymph node. The frozen section residue is entirely submitted in one cassette. C. Received fresh for frozen section evaluation, labeled "right sentinel node #2" is a 1.1 x 0.5 x 0.3 cm lymph node with attached fatty tissue. Frozen section is performed on the lymph node. The frozen section residue is entirely submitted in one cassette. D. Received fresh for frozen section evaluation, labeled "right sentinel node #3" is a 0.6 x 0.3 x 0.2 cm lymph node with attached fatty tissue. Frozen section is performed on the lymph node. The frozen section residue is entirely submitted in one cassette. E. Received fresh for frozen section evaluation, labeled "left retroareolar biopsy" is a 1.4 x 0.5 x 0.3 cm portion of red and pink-garcia tissue. Frozen section is performed on the specimen. The frozen section residue is entirely submitted in one cassette. F. Received fresh for frozen section evaluation, labeled "right retroareolar biopsy" is a 1.5 x 0.7 x 0.3 cm portion of red and pink-garcia tissue. Frozen section is performed on the specimen. The frozen section residue is entirely submitted in one cassette. G. Received in formalin, labeled "left breast mastectomy," is a 180 gram, 15.0 x 12.8 x 2.3 cm. left mastectomy specimen with a short suture marking the superior aspect and a long suture marking the lateral aspect of the specimen, per the surgeon. There is no skin or nipple present. The deep margin is inked black and the anterior soft tissue margin is inked blue. The specimen is serially sectioned from medial to lateral. Sectioning reveals abundant dense, white, focally firm fibrous tissue. No definitive mass is identified. There is no clip and no previous biopsy site identified. Hook Up sections are submitted in 18 cassettes as follows: 1-6-upper outer quadrant; 7-11-lower outer quadrant; 12-15-upper inner quadrant; 16-17-lower inner quadrant; 18-anterior soft tissue margin; 19-deep margin. H. Received in formalin, labeled "right breast mastectomy," is a 190 gram, 17.0 x 14.5 x 2.7 cm. right mastectomy specimen with a short suture marking the superior aspect and a long suture marking the lateral aspect of the specimen, per the surgeon. There is no skin or nipple present. The deep margin is inked black and the anterior soft tissue margin is inked blue. The specimen is serially sectioned from lateral to medial. Sectioning reveals a 3.3 x 2.5 x 0.9 cm firm fibrous lesion in the upper inner quadrant (UIQ). The lesion focally abuts the anterior soft tissue margin. The remaining breast parenchyma displays abundant dense, white, focally firm fibrous tissue. Hook Up sections are submitted in 15 cassettes as follows: [id number] submitted UIQ lesion from medial to lateral (each with anterior soft tissue margin); 9-10-lower inner quadrant; 11-12-upper outer quadrant; 13-14-lower outer quadrant; 15-deep margin. I. Received in formalin labeled "right breast anterior margin 12:00," is a 4.2 x 2.5 x 0.7 cm portion of fibroadipose tissue with a suture marking the biopsy cavity side, per the surgeon. The new margin is inked blue and the specimen is serially sectioned. The specimen is entirely submitted in 4 cassettes. J. Received in formalin labeled "anterior margin saviscout right breast," is a 4.3 x 2.2 x 1.0 cm portion of fibroadipose tissue with a suture marking the biopsy cavity side, per the surgeon. The new margin is inked blue and the specimen is serially sectioned. Sectioning reveals a isidro metallic clip. The specimen is entirely and sequentially submitted in 5 cassettes with the clip in cassette 3. K. Received in formalin labeled "right breast anterior margin upper outer quadrant," is a 3.5 x 1.8 x 1.1 cm portion of fibroadipose tissue with a suture marking the biopsy cavity side, per the surgeon. The new margin is inked blue and the specimen is serially sectioned. The specimen is entirely submitted in 3 cassettes. L. Received in formalin labeled "left breast anterior margin 12:00," is a 3.8 x 2.8 x 1.7 cm portion of fibroadipose tissue with a suture marking the biopsy cavity side, per the surgeon. The new margin is inked blue and the specimen is serially sectioned. The specimen is entirely and sequentially submitted in 8 cassettes. M. Received in formalin labeled "right axillary node dissection," is a 7.0 x 7.0 x 2.3 cm aggregate of yellow, lobulated adipose tissue. Sectioning reveals multiple possible lymph nodes, measuring up to 0.8 cm in greatest dimension. The lymph nodes are entirely submitted in 10 cassettes as follows: 1-2-one bisected lymph node each; 4-10-one whole possible lymph node each. N. Received in formalin labeled "left breast anterior margin with clip," is a 6.0 x 4.7 x 1.0 cm portion of fibroadipose tissue with a suture marking the biopsy cavity side, per the surgeon. The new margin is inked blue and the specimen is serially sectioned. Sectioning reveals a isidro metallic biopsy clip. Hook Up sections are submitted in 6 cassettes with clip in cassette 1-2. O. Received in formalin labeled "right nipple," is a 3.2 x 2.0 x 1.5 cm portion of fibroadipose tissue with a short suture marking superior aspect and a long suture marking the lateral aspect of the specimen, per the surgeon. The anterior surface displays a 2.5 x 1.5 cm garcia, elliptical portion of skin with a central 0.9 cm in diameter nipple. There is no needle localization wire present. The specimen is inked as follows: Superior blue; inferior green; lateral red; medial yellow; deep black. The specimen is serially sectioned from lateral to medial. No discrete lesions are identified. The specimen is entirely and sequentially submitted in 8 cassettes with the lateral margin in cassette 1 and the medial margin in cassette 8. P. Received in formalin labeled "right axillary non-sentinel lymph node," is a 0.6 x 0.5 x 0.3 cm garcia lymph node. The specimen is submitted in toto in one cassette. Q. Received fresh labeled "Port-A-Cath," is a 2.5 x 2.4 x 1.5 cm white, triangular device, consistent with a Port-A-Cath. The Port-A-Cath displays a 24 cm in length portion of tubing extending from one aspect. No soft tissue is present. No sections are submitted, gross only. AE/03/27/2020 ebram/03/27/2020
== END 2020-03-28 16:30 | disposition home or self-care (01) | DRG 580 ==
LOC: EDSTATUS 10:00 → FM/S 11:10 → EDSTATUS 13:30 → FM/S 18:24
PROVIDERS: ADMIT Surgery Surgical Oncology; ATTEND Surgery Surgical Oncology
PROC: 4A1GXSH Monitoring of Skin and Breast Vascular Perfusion using Indocyanine Green Dye, External Approach (ICD-10-PCS; 2020-03-27)
PROC: 0HTV0ZZ Resection of Bilateral Breast, Open Approach (ICD-10-PCS; principal; 2020-03-27 13:23)
PROC: 07B60ZX Excision of Left Axillary Lymphatic, Open Approach, Diagnostic (ICD-10-PCS; 2020-03-27 13:23)
PROC: 07B50ZX Excision of Right Axillary Lymphatic, Open Approach, Diagnostic (ICD-10-PCS; 2020-03-27 13:23)
PROC: 0HRV0JZ Replacement of Bilateral Breast with Synthetic Substitute, Open Approach (ICD-10-PCS; 2020-03-27 13:23)
DX: C50.211 Malignant neoplasm of upper-inner quadrant of right female breast (principal); C77.3 Secondary and unspecified malignant neoplasm of axilla and upper limb lymph nodes; C50.212 Malignant neoplasm of upper-inner quadrant of left female breast; Z17.0 Estrogen receptor positive status [ER+]; F32.9 Major depressive disorder, single episode, unspecified; M95.4 Acquired deformity of chest and rib
CPT/HCPCS: 36415; 76098-TC-FY; 78195-TC; 84703; 85027; 88300-TC; 88307-TC; 88331-TC; 88341-TC; 94760; A9541

== ENCOUNTER 2020-05-29 08:00 | Inpatient (IN) | payer BC ==
[2020-05-29] MEDS ORDERED: BUPIVACAINE LIPOSOME/PF (EXPAREL) 266 MG/20 ML VIAL ONE (09:19)
[2020-05-29] MEDS ORDERED: BUPIVACAINE HCL/PF 0.25% (2.5MG/ML) 10 ML VIAL ONE ×2 (09:21→09:31)
[2020-05-29] MEDS ORDERED: ceFAZolin SODIUM 1 GM VIAL ONE ×2 (09:21→09:56)
[2020-05-29] MEDS ORDERED: SODIUM CHLORIDE 0.9% P/F 10 ML VIAL IJ ONE (09:21)
[2020-05-29] MEDS ORDERED: GENTAMICIN SO4 80 MG/2 ML VIAL ONE (09:21)
[2020-05-29] MEDS ORDERED: SCOPOLAMINE HYDROBROMIDE 1 PATCH PATCH.TD72 ONE (09:26)
[2020-05-29] MEDS ORDERED: MIDAZOLAM HCL 2 MG/2 ML SINGLE DOSE VIAL ONE ×2 (09:26→09:36)
[2020-05-29] MEDS ORDERED: fentaNYL CITRATE 250 MCG/5 ML VIAL ONE (09:35)
[2020-05-29] MEDS ORDERED: PROPOFOL 20 ML ONE ×5 (09:36)
[2020-05-29] MEDS ORDERED: ROCURONIUM BROMIDE 50 MG/5 ML SYRINGE ONE (09:36)
[2020-05-29] MEDS ORDERED: EPHEDRINE SULFATE/0.9% NACL/PF 50 MG/10 ML SYRINGE NR ONE (09:49)
[2020-05-29] MEDS ORDERED: DEXAMETHASONE SOD PHOSPHATE 4 MG/1 ML VIAL ONE (09:56)
[2020-05-29] MEDS ORDERED: SUCCINYLCHOLINE CHLORIDE 200 MG/10 ML SYRINGE ONE (09:56)
[2020-05-29] MEDS ORDERED: LIDOCAINE HCL/PF 2% SDV 5ML VIAL ONE (09:56)
[2020-05-29] MEDS ORDERED: LIDOCAINE HCL 2% JELLY (5 ML/TUBE) ONE (09:56)
[2020-05-29] MEDS ORDERED: ONDANSETRON 4 MG/2 ML VIAL ONE (09:56)
[2020-05-29] MEDS ORDERED: KETOROLAC TROMETHAMINE 30 MG/1 ML VIAL ONE (09:56)
[2020-05-29] MEDS ORDERED: ONDANSETRON 4 MG/2 ML VIAL IVPUSH PRN ×2 (11:11→11:33)
[2020-05-29] MEDS ORDERED: KETOROLAC TROMETHAMINE 30 MG/1 ML VIAL IVPUSH PRN (11:11)
[2020-05-29] MEDS ORDERED: DEXTROSE 5%-0.45% SALINE 1,000 ML IV SCH (11:15)
[2020-05-29] MEDS ORDERED: PROMETHAZINE HCL 25 MG/1 ML VIAL IVPUSH PRN (11:33)
[2020-05-29] MEDS ORDERED: oxyCODONE HCL 5 MG TABLET PO PRN ×2 (11:33)
[2020-05-29 12:34] VITALS: TEMP 97.8
[2020-05-29 13:51] VITALS: BP 118/78; PULSE 106
== END 2020-05-29 13:50 | disposition home or self-care (01) | DRG 580 ==
LOC: EDSTATUS 08:00 → FM/S 08:47
PROVIDERS: ADMIT Plastic Surgery; ATTEND Plastic Surgery
PROC: 0HPT0JZ Removal of Synthetic Substitute from Right Breast, Open Approach (ICD-10-PCS; 2020-05-29)
PROC: 0HHT0NZ Insertion of Tissue Expander into Right Breast, Open Approach (ICD-10-PCS; 2020-05-29)
PROC: 0HRT0JZ Replacement of Right Breast with Synthetic Substitute, Open Approach (ICD-10-PCS; 2020-05-29)
PROC: 0HTT0ZZ Resection of Right Breast, Open Approach (ICD-10-PCS; principal; 2020-05-29 10:00)
PROC: 07B50ZX Excision of Right Axillary Lymphatic, Open Approach, Diagnostic (ICD-10-PCS; 2020-05-29 10:00)
DX: C50.811 Malignant neoplasm of overlapping sites of right female breast (principal); C77.3 Secondary and unspecified malignant neoplasm of axilla and upper limb lymph nodes; C50.312 Malignant neoplasm of lower-inner quadrant of left female breast; Z17.0 Estrogen receptor positive status [ER+]; F32.9 Major depressive disorder, single episode, unspecified
CPT/HCPCS: 84703; 88300-TC; 88305-TC; 94760